=== PATIENT | male | born 1955 | race African-American/Black ===

== ENCOUNTER 2017-01-11 06:01 | Emergency (ER) | payer MEDICARE ==
[2017-01-11] MEDS ORDERED: Ketorolac Tromethamine 60 MG/2 ML VIAL ONE (06:24)
[2017-01-11] MEDS ORDERED: Colchicine 0.6 MG TAB PO SCH (06:30)
--- NOTE | 2017-01-11 07:38 | RAD ---
LEFT KNEE 4 VIEWS: Date: 01/11/17 HISTORY: 61-year-old male with left knee pain and swelling. FINDINGS: Mild degenerative changes. Increased density in the suprapatellar recess region, evidence for some gino int effusion. No acute fracture. IMPRESSION: Evidence for suprapatellar joint effusion. Mild degenerative changes without acute fracture. POS: [facility]
== END 2017-01-11 07:50 | disposition home or self-care (01) ==
LOC: ERS 06:01
DX: M10.9 Gout, unspecified (principal); I10 Essential (primary) hypertension; F31.9 Bipolar disorder, unspecified; F41.9 Anxiety disorder, unspecified; F17.210 Nicotine dependence, cigarettes, uncomplicated; Z71.6 Tobacco abuse counseling
CPT/HCPCS: 96372; 99406; J1885

== ENCOUNTER 2017-06-06 10:21 | Emergency (ER) | payer MEDICARE ==
[2017-06-06] MEDS ORDERED: Ibuprofen 800 MG TAB ONE (11:24)
== END 2017-06-06 11:26 | disposition home or self-care (01) ==
LOC: ERS 10:21
DX: M10.9 Gout, unspecified (principal); I10 Essential (primary) hypertension; F41.9 Anxiety disorder, unspecified; F31.9 Bipolar disorder, unspecified; F20.9 Schizophrenia, unspecified
CPT/HCPCS: 99283

== ENCOUNTER 2017-10-30 13:24 | Emergency (ER) | payer MEDICARE ==
[2017-10-30 13:57] LABS: #Basophils 0.1 thou/uL (0.0-0.2); #Eosinphils 0.2 thou/uL (0.0-0.7); #Lymphocytes 2.2 thou/uL (1.20-3.40); #Monocytes 0.7 thou/uL (0.11-0.59); #Neutrophils 3.3 thou/uL (1.40-6.50); %Basophils 1.2 % (0.0-1.0); %Eosinophils 2.7 % (0.0-10.0); %Lymphocytes 34.4 % (21.0-51.0); %Monocytes 10.3 % (0.0-10.0); %Neutrophils 51.4 % (42.0-75.0); Hemoglobin 14.1 g/dL (14.0-18.0); Mean Corpuscular Hemoglobin 28.9 pg (27.0-31.0); Mean Corpuscular Volume 82.6 fL (78.0-98.0); Platelet Count 319 thou/uL (130-400); RBC Distribution Width 12.6 % (11.5-14.5); Red Blood Cell (RBC) Count 4.86 mill/uL (4.70-6.10); White Blood Cell (WBC) Count 6.5 thou/uL (4.8-10.8)
[2017-10-30] MEDS ORDERED: ISOVUE-370 76%-LOCM 1 ML ONE (13:58)
--- NOTE | 2017-10-30 14:03 | RAD ---
PORTABLE CHEST ONE VIEW: Date: 10-30-17 Time: 1:28 p.m. History: Dyspnea. FINDINGS/IMPRESSION: Comparison is made with exam of 05-07-15. The heart size is borderline. The lungs are well expanded with mild pulmonary vascular congestion. No lobar consolidation, pneumothoraces, or pleural effusions are seen. POS: [facility]
[2017-10-30] MEDS ORDERED: Adacel (T-DAP) 0.5 ML VIAL ONE (14:05)
[2017-10-30 14:22] LABS: ALT (SGPT) 15 U/L (8-55); AST (SGOT) 29 U/L (5-34); Albumin 4.2 g/dL (3.4-4.8); Alkaline Phosphatase 68 U/L (40-150); Anion Gap 15 mmol/L (10-20); BUN (Urea Nitrogen) 5 mg/dL (8.4-25.7); Bilirubin, Total 0.4 mg/dL (0.2-1.2); Calc. Creatinine Clearance 0 mL/min (70-130); Calcium 9.5 mg/dL (7.8-10.44); Carbon Dioxide 22 mmol/L (23-31); Chloride 106 mmol/L (98-107); Estimated GFR-MDRD 82; Globulin 3.5 g/dL (2.4-3.5); Glucose 78 mg/dL (80-115); Lipase 9 U/L (8-78); Potassium 3.5 mmol/L (3.5-5.1); Protein, Total 7.7 g/dL (5.8-8.1); Sodium 139 mmol/L (136-145)
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
[2017-10-30] MEDS ORDERED: HYDROcodone/Acetaminophen 5/325 mg Tablet ONE (17:09)
== END 2017-10-30 17:24 | disposition home or self-care (01) ==
LOC: ERS 13:24
DX: S20.211A Contusion of right front wall of thorax, initial encounter (principal); F31.9 Bipolar disorder, unspecified; F20.9 Schizophrenia, unspecified; F41.9 Anxiety disorder, unspecified; F17.210 Nicotine dependence, cigarettes, uncomplicated; I10 Essential (primary) hypertension; M10.9 Gout, unspecified; Y04.8XXA Assault by other bodily force, initial encounter
CPT/HCPCS: 71045; 71260; 80053; 83690; 85025; 90471; 90715; 94760; 96374; G0390

== ENCOUNTER 2017-12-21 10:44 | Emergency (ER) | payer MEDICARE ==
[2017-12-21] MEDS ORDERED: Ketorolac Tromethamine 30 MG/ML VIAL ONE ×2 (11:20→11:21)
--- NOTE | 2017-12-21 11:42 | RAD ---
FOUR VIEWS RIGHT ELBOW: HISTORY: Right elbow pain. FINDINGS: AP, lateral, and both oblique views right elbow obtained. Four views right elbow demonstrate no evidence of right elbow fractures, subluxations, or bony lesion s. IMPRESSION: Normal 4 views right elbow. POS: [facility]
[2017-12-21 11:54] LABS: #Eosinphils 0.1 thou/uL (0.0-0.7); #Lymphocytes 1.9 thou/uL (1.20-3.40); #Monocytes 1.1 thou/uL (0.11-0.59); #Neutrophils 5.3 thou/uL (1.40-6.50); %Basophils 0.3 % (0.0-1.0); %Eosinophils 1.3 % (0.0-10.0); %Lymphocytes 22.1 % (21.0-51.0); %Monocytes 12.9 % (0.0-10.0); %Neutrophils 63.4 % (42.0-75.0); Hemoglobin 13.7 g/dL (14.0-18.0); Mean Corpuscular Hemoglobin 28.1 pg (27.0-31.0); Mean Corpuscular Volume 82.6 fL (78.0-98.0); Mean Platelet Volume 7.2 fL (7.4-10.4); Platelet Count 294 thou/uL (130-400); RBC Distribution Width 12.9 % (11.5-14.5); Red Blood Cell (RBC) Count 4.86 mill/uL (4.70-6.10); White Blood Cell (WBC) Count 8.4 thou/uL (4.8-10.8)
[2017-12-21 12:07] LABS: ALT (SGPT) 10 U/L (8-55); AST (SGOT) 18 U/L (5-34); Alkaline Phosphatase 73 U/L (40-150); Anion Gap 16 mmol/L (10-20); BUN (Urea Nitrogen) 13 mg/dL (8.4-25.7); Bilirubin, Total 0.8 mg/dL (0.2-1.2); Calc. Creatinine Clearance 0 mL/min (70-130); Calcium 9.5 mg/dL (7.8-10.44); Carbon Dioxide 22 mmol/L (23-31); Chloride 105 mmol/L (98-107); Estimated GFR-MDRD 79; Globulin 3.7 g/dL (2.4-3.5); Glucose 99 mg/dL (80-115); Potassium 4.1 mmol/L (3.5-5.1); Protein, Total 7.7 g/dL (5.8-8.1); Sodium 139 mmol/L (136-145)
--- NOTE | 2017-12-21 12:08 | RAD ---
FOUR VIEW LEFT KNEE SERIES: INDICATION: Left knee pain. COMPARISON: Reference is made to 01/11/2017 exam. FINDINGS: Mild residual joint capsular distention remains, decreased from prior exam. No acute fracture. Exam is otherwise similar. IMPRESSION: Improved suprapatellar joint capsular distention, when comparing to 01/11/2017, with mild residual rem aining. Correlate clinically. POS: [facility]
== END 2017-12-21 13:14 | disposition home or self-care (01) ==
LOC: ERS 10:44
DX: M10.9 Gout, unspecified (principal); I10 Essential (primary) hypertension; F41.9 Anxiety disorder, unspecified; F20.9 Schizophrenia, unspecified; F31.9 Bipolar disorder, unspecified; F17.210 Nicotine dependence, cigarettes, uncomplicated; M79.631 Pain in right forearm
CPT/HCPCS: 36415; 80053; 85025; 85652; 86140; 96374; J1885

== ENCOUNTER 2019-04-12 05:57 | Emergency (ER) | payer MEDICARE ==
[2019-04-12] MEDS ORDERED: Ketorolac Tromethamine 60 MG/2 ML VIAL ONE (06:15)
== END 2019-04-12 07:01 | disposition home or self-care (01) ==
LOC: ERS 05:57
DX: M10.9 Gout, unspecified (principal); F41.9 Anxiety disorder, unspecified; F31.9 Bipolar disorder, unspecified; F20.9 Schizophrenia, unspecified; I10 Essential (primary) hypertension; F17.210 Nicotine dependence, cigarettes, uncomplicated
CPT/HCPCS: 96372; 99283; J1885

== ENCOUNTER 2019-08-01 16:59 | Emergency (ER) | payer MEDICARE ==
--- NOTE | 2019-08-01 18:19 | RAD ---
LEFT KNEE: 08/01/19 Four views. HISTORY: Pain and swelling. COMPARISON: 12/21/17. Large amount effusion is noted in the suprapatellar region. Mild degenerative change with minimal spu rring from the tibial spines and condyles. No fracture or acute abnormality. IMPRESSION: There is lucency in the superior patella with sclerotic borders. This is a stable finding from prior exam and may represent subchondral cystic change. IMPRESSION: Mild degenerative changes as described which appear stable. Large joint effusion is noted. POS: [facility]
== END 2019-08-01 18:26 | disposition home or self-care (01) ==
LOC: ERS 16:59
DX: M10.9 Gout, unspecified (principal); I10 Essential (primary) hypertension; F41.9 Anxiety disorder, unspecified; F31.9 Bipolar disorder, unspecified; F20.9 Schizophrenia, unspecified; F17.210 Nicotine dependence, cigarettes, uncomplicated

== ENCOUNTER 2020-10-17 18:21 | Emergency (ER) | payer MEDICARE ==
[2020-10-17] MEDS ORDERED: Ketorolac Tromethamine 30 MG/ML VIAL ONE (20:16)
[2020-10-17] MEDS ORDERED: Cyclobenzaprine 10 MG TAB ONE (20:16)
== END 2020-10-17 21:26 | disposition home or self-care (01) ==
LOC: ERS 18:21
DX: M54.5 Low back pain (principal); I10 Essential (primary) hypertension; M10.9 Gout, unspecified; F17.210 Nicotine dependence, cigarettes, uncomplicated
CPT/HCPCS: 96372; 99283; J1885

== ENCOUNTER 2020-11-04 05:51 | Emergency (ER) | payer MEDICARE ==
[2020-11-04] MEDS ORDERED: Morphine 4 MG/ML VIAL ONE (07:18)
== END 2020-11-04 08:00 | disposition home or self-care (01) ==
LOC: ERS 05:51
DX: S82.842A Displaced bimalleolar fracture of left lower leg, initial encounter for closed fracture (principal); I10 Essential (primary) hypertension; M10.9 Gout, unspecified; F17.210 Nicotine dependence, cigarettes, uncomplicated; X50.1XXA Overexertion from prolonged static or awkward postures, initial encounter
CPT/HCPCS: 29515; 96372; J2270

== ENCOUNTER 2020-11-09 11:53 | Outpatient (CLI) | payer MEDICARE ==
[2020-11-09 23:48] LABS: SARS-CoV-2 PCR by NAA Not Detected (NotDetected)
== END 2020-11-09 11:54 | disposition home or self-care (01) ==
LOC: LABBT 11:53
PROVIDERS: ATTEND Orthopaedic Surgery
DX: Z01.812 Encounter for preprocedural laboratory examination (principal); S82.842A Displaced bimalleolar fracture of left lower leg, initial encounter for closed fracture; Z20.822 Contact with and (suspected) exposure to COVID-19
CPT/HCPCS: U0003; U0005

== ENCOUNTER 2020-11-12 05:59 | Day surgery (SDC) | payer MEDICARE ==
[2020-11-10 15:20] VITALS: BMI 23.3
[2020-11-12] MEDS ORDERED: Fentanyl 100 MCG/2 ML VIAL ONE ×3 (06:36→09:19)
[2020-11-12] MEDS ORDERED: Neomycin-Polymyxin 1 ML AMP ONE (06:38)
[2020-11-12] MEDS ORDERED: Bupivacaine PF 0.5% 30 ML VIAL ONE (06:38)
[2020-11-12] MEDS ORDERED: ceFAZolin 2 GM/DEX 5% 100 ML BAG ONE (06:42)
[2020-11-12] MEDS ORDERED: Midazolam HCl 2 mg/2 ml Vial ONE (07:01)
[2020-11-12] MEDS ORDERED: Morphine 4 MG/ML VIAL ONE ×2 (09:54→10:51)
[2020-11-12] MEDS ORDERED: HYDROcodone/Acetaminophen 5/325 mg Tablet ONE (10:30)
== END 2020-11-12 14:35 | disposition home or self-care (01) ==
LOC: SDC 05:59
PROVIDERS: ATTEND Orthopaedic Surgery
PROC: 0QSK04Z Reposition Left Fibula with Internal Fixation Device, Open Approach (ICD-10-PCS; principal; 2020-11-12)
PROC: 0QSH04Z Reposition Left Tibia with Internal Fixation Device, Open Approach (ICD-10-PCS; 2020-11-12)
PROC: 3E0T3BZ Introduction of Anesthetic Agent into Peripheral Nerves and Plexi, Percutaneous Approach (ICD-10-PCS; 2020-11-12)
DX: S82.842A Displaced bimalleolar fracture of left lower leg, initial encounter for closed fracture (principal); F17.200 Nicotine dependence, unspecified, uncomplicated; X50.1XXA Overexertion from prolonged static or awkward postures, initial encounter
CPT/HCPCS: 27814; 64445; 73610; 76000; C1713 ×5; J2250; J2270; J3010; S0020

== ENCOUNTER 2020-11-14 13:22 | Emergency (ER) | payer MEDICARE ==
[2020-11-14 13:45] LABS: #Basophils 0.1 thou/uL (0.0-0.2); #Eosinphils 0.1 thou/uL (0.0-0.7); #Lymphocytes 2.9 thou/uL (1.20-3.40); #Monocytes 1.5 thou/uL (0.11-0.59); %Basophils 0.7 % (0.0-1.0); %Eosinophils 0.6 % (0.0-10.0); %Monocytes 13.3 % (0.0-10.0); %Neutrophils 60.5 % (42.0-75.0); Hemoglobin 12.5 g/dL (14.0-18.0); Mean Corpuscular HGB CONC 33.8 g/dL (32.0-36.0); Mean Corpuscular Hemoglobin 27.3 pg (27.0-31.0); Mean Corpuscular Volume 80.9 fL (78.0-98.0); Mean Platelet Volume 6.6 fL (7.4-10.4); Platelet Count 505 thou/uL (130-400); RBC Distribution Width 13.2 % (11.5-14.5); Red Blood Cell (RBC) Count 4.57 mill/uL (4.70-6.10); White Blood Cell (WBC) Count 11.6 thou/uL (4.8-10.8)
[2020-11-14] MEDS ORDERED: Ketorolac Tromethamine 30 MG/ML VIAL ONE (14:06)
[2020-11-14] MEDS ORDERED: Morphine 4 MG/ML VIAL ONE (14:06)
[2020-11-14 14:07] LABS: ALT (SGPT) 15 U/L (8-55); AST (SGOT) 53 U/L (5-34); Albumin 3.7 g/dL (3.4-4.8); Alkaline Phosphatase 82 U/L (40-110); Anion Gap 15 mmol/L (10-20); BUN (Urea Nitrogen) 12 mg/dL (8.4-25.7); Bilirubin, Total 0.5 mg/dL (0.2-1.2); Calc. Creatinine Clearance 0 mL/min (70-130); Calcium 9.6 mg/dL (7.8-10.44); Carbon Dioxide 24 mmol/L (23-31); Chloride 107 mmol/L (98-107); Globulin 4.2 g/dL (2.4-3.5); Glucose 84 mg/dL (80-115); Potassium 6.1 mmol/L (3.5-5.1); Protein, Total 7.9 g/dL (5.8-8.1); Sodium 140 mmol/L (136-145)
== END 2020-11-14 16:45 | disposition home or self-care (01) ==
LOC: ERS 13:22
DX: G89.18 Other acute postprocedural pain (principal); S82.842D Displaced bimalleolar fracture of left lower leg, subsequent encounter for closed fracture with routine healing; I10 Essential (primary) hypertension; M10.9 Gout, unspecified; F17.210 Nicotine dependence, cigarettes, uncomplicated
CPT/HCPCS: 27808; 80053; 85025; 96374; 96375; J1885; J2270

== ENCOUNTER 2020-12-03 08:01 | Emergency (ER) | payer MEDICARE ==
[2020-12-03] MEDS ORDERED: Ketorolac Tromethamine 30 MG/ML VIAL ONE (08:23)
[2020-12-03 08:48] LABS: Bilirubin Negative (Negative); Blood, Urine Negative (Negative); Clarity Clear (Clear); Glucose, Urine (Dipstick) Normal (Negative); Ketone, Urine Negative (Negative); Leukocyte Negative Leu/uL (Negative); Nitrite Negative (Negative); Protein, Urine (Dipstick) Negative (Neg-Trace); Specific Gravity, Urine 1.005 (1.002-1.036); Urobilinogen Normal mg/dL (Less than 2)
== END 2020-12-03 10:55 | disposition home or self-care (01) ==
LOC: ERS 08:01
DX: M54.50 Low back pain, unspecified (principal); I10 Essential (primary) hypertension; M10.9 Gout, unspecified; F17.210 Nicotine dependence, cigarettes, uncomplicated
CPT/HCPCS: 81003; 96372; 99283; J1885

== ENCOUNTER 2021-03-06 22:45 | Emergency (ER) | payer MEDICARE ==
[2021-03-06] MEDS ORDERED: Acetaminophen 500 MG TAB ONE (22:55)
[2021-03-07 15:35] LABS: SARS-CoV-2 PCR by NAA Not Detected (NotDetected)
== END 2021-03-07 01:05 | disposition home or self-care (01) ==
LOC: ERS 22:45
DX: B34.9 Viral infection, unspecified (principal); M25.572 Pain in left ankle and joints of left foot; Z20.822 Contact with and (suspected) exposure to COVID-19; I10 Essential (primary) hypertension; M10.9 Gout, unspecified; F17.210 Nicotine dependence, cigarettes, uncomplicated
CPT/HCPCS: 73610; 87804 ×2; 99284; U0003; U0005

== ENCOUNTER 2021-04-06 13:57 | Emergency (ER) | payer MEDICARE ==
[2021-04-06] MEDS ORDERED: Rocuronium Bromide 10 MG/ML (10ML VIAL) ONE ×2 (14:38→14:45)
[2021-04-06] MEDS ORDERED: Ketamine 50 MG/ML (10ML VIAL) ONE (14:38)
[2021-04-06] MEDS ORDERED: Midazolam HCl 2 mg/2 ml Vial ONE ×3 (14:49→14:54)
[2021-04-06] MEDS ORDERED: Propofol 1,000 MG/100 ML VIAL IV ONE (14:53)
[2021-04-06 15:18] LABS: #Basophils 0.1 thou/uL (0.0-0.2); #Eosinphils 0.1 thou/uL (0.0-0.7); #Lymphocytes 1.3 thou/uL (1.20-3.40); #Monocytes 0.7 thou/uL (0.11-0.59); #Neutrophils 6.6 thou/uL (1.40-6.50); %Basophils 0.7 % (0.0-1.0); %Eosinophils 0.9 % (0.0-10.0); %Lymphocytes 14.9 % (21.0-51.0); %Monocytes 7.5 % (0.0-10.0); %Neutrophils 76.1 % (42.0-75.0); Hemoglobin 13.7 g/dL (14.0-18.0); Mean Corpuscular HGB CONC 33.5 g/dL (32.0-36.0); Mean Corpuscular Hemoglobin 27.2 pg (27.0-31.0); Mean Corpuscular Volume 81.4 fL (78.0-98.0); Mean Platelet Volume 6.3 fL (7.4-10.4); Platelet Count 478 thou/uL (130-400); RBC Distribution Width 13.9 % (11.5-14.5); Red Blood Cell (RBC) Count 5.02 mill/uL (4.70-6.10); White Blood Cell (WBC) Count 8.7 thou/uL (4.8-10.8)
[2021-04-06 15:36] LABS: Acetaminophen Less than 6.0 mcg/mL (10.0-30.0); Alcohol 54 mg/dL (Less than 10); Salicylate Less than 8.0 mg/dL (15.0-30.0)
[2021-04-06 15:37] LABS: ALT (SGPT) 11 U/L (8-55); AST (SGOT) 15 U/L (5-34); Alkaline Phosphatase 76 U/L (40-110); Anion Gap 15 mmol/L (10-20); BUN (Urea Nitrogen) 8 mg/dL (8.4-25.7); Bilirubin, Total 0.3 mg/dL (0.2-1.2); CK (CPK) 114 U/L (30-200); Calc. Creatinine Clearance 0 mL/min (70-130); Calcium 9.4 mg/dL (7.8-10.44); Carbon Dioxide 23 mmol/L (23-31); Chloride 106 mmol/L (98-107); Globulin 3.5 g/dL (2.4-3.5); Glucose 68 mg/dL (80-115); Potassium 3.9 mmol/L (3.5-5.1); Protein, Total 7.5 g/dL (5.8-8.1); Sodium 140 mmol/L (136-145)
[2021-04-06] MEDS ORDERED: Aspirin Chewable 81 MG TAB ONE (16:13)
[2021-04-06 18:34] LABS: Amphetamine Not Detected (NotDetected); Barbiturates Screen Not Detected (NotDetected); Benzodiazepine Screen Detected (NotDetected); Cocaine Metabolite Screen Detected (NotDetected); Methadone Not Detected (NotDetected); Methamphetamine Not Detected (NotDetected); Opiate Screen Not Detected (NotDetected); Oxycodone Screen Not Detected (NotDetected); Phencyclidine (PCP) Not Detected (NotDetected); THC/Cannabinoid Screen Detected (NotDetected); Tricyclic Screen Not Detected (NotDetected)
== END 2021-04-06 21:09 | disposition home or self-care (01) ==
LOC: ERS 13:57
DX: R07.2 Precordial pain (principal); F14.10 Cocaine abuse, uncomplicated; I10 Essential (primary) hypertension; M10.9 Gout, unspecified; F17.210 Nicotine dependence, cigarettes, uncomplicated
CPT/HCPCS: 36415; 71045; 80053; 80306; 80307; 82550; 83880; 84484; 85025; 93005; J2250; J2704

== ENCOUNTER 2021-07-02 12:01 | Emergency (ER) | payer MEDICARE ==
[2021-07-02] MEDS ORDERED: Ketorolac Tromethamine 30 MG/ML VIAL ONE (12:46)
[2021-07-02 12:59] LABS: #Eosinphils 0.1 thou/uL (0.0-0.7); #Lymphocytes 1.9 thou/uL (1.20-3.40); #Monocytes 1.3 thou/uL (0.11-0.59); #Neutrophils 6.7 thou/uL (1.40-6.50); %Basophils 0.4 % (0.0-1.0); %Lymphocytes 18.5 % (21.0-51.0); %Monocytes 13.1 % (0.0-10.0); Hemoglobin 14.4 g/dL (14.0-18.0); Mean Corpuscular HGB CONC 34.1 g/dL (32.0-36.0); Mean Corpuscular Hemoglobin 27.5 pg (27.0-31.0); Mean Corpuscular Volume 80.8 fL (78.0-98.0); Platelet Count 316 thou/uL (130-400); RBC Distribution Width 13.8 % (11.5-14.5); Red Blood Cell (RBC) Count 5.23 mill/uL (4.70-6.10)
[2021-07-02 13:19] LABS: ALT (SGPT) 7 U/L (8-55); AST (SGOT) 13 U/L (5-34); Alkaline Phosphatase 81 U/L (40-110); Anion Gap 14 mmol/L (10-20); BUN (Urea Nitrogen) 13 mg/dL (8.4-25.7); Bilirubin, Total 0.9 mg/dL (0.2-1.2); Calc. Creatinine Clearance 0 mL/min (70-130); Calcium 9.4 mg/dL (7.8-10.44); Carbon Dioxide 24 mmol/L (23-31); Chloride 103 mmol/L (98-107); Glucose 86 mg/dL (80-115); Potassium 3.9 mmol/L (3.5-5.1); Sodium 137 mmol/L (136-145)
== END 2021-07-02 13:32 | disposition home or self-care (01) ==
LOC: ERS 12:01
DX: M10.9 Gout, unspecified (principal); I10 Essential (primary) hypertension; F17.210 Nicotine dependence, cigarettes, uncomplicated
CPT/HCPCS: 36415; 80053; 85025; 85652; 86140; 87040; 96374; J1885

== ENCOUNTER 2022-01-10 13:43 | Emergency (ER) | payer MEDICARE ==
[2022-01-10] MEDS ORDERED: Ketorolac Tromethamine 30 MG/ML VIAL ONE (15:22)
== END 2022-01-10 16:29 | disposition home or self-care (01) ==
LOC: ERS 13:43
DX: M10.9 Gout, unspecified (principal); I10 Essential (primary) hypertension; F17.210 Nicotine dependence, cigarettes, uncomplicated; Z79.899 Other long term (current) drug therapy
CPT/HCPCS: 96372; J1885

== ENCOUNTER 2022-01-11 14:53 | Emergency (ER) | payer MEDICARE ==
[2022-01-11] MEDS ORDERED: Ketorolac Tromethamine 30 MG/ML VIAL ONE (15:51)
== END 2022-01-11 16:47 | disposition home or self-care (01) ==
LOC: ERS 14:53
DX: M10.9 Gout, unspecified (principal); I10 Essential (primary) hypertension; F17.210 Nicotine dependence, cigarettes, uncomplicated
CPT/HCPCS: 96374; J1885

== ENCOUNTER 2022-11-10 19:52 | Emergency (ER) | payer MEDICARE | END 2022-11-10 20:52 | disposition home or self-care (01) | LOC: ERS 19:52 | DX: S00.83XA Contusion of other part of head, initial encounter (principal); I10 Essential (primary) hypertension; F17.210 Nicotine dependence, cigarettes, uncomplicated; W19.XXXA Unspecified fall, initial encounter | CPT/HCPCS: 70450; 70486 ==

== ENCOUNTER 2022-11-14 10:13 | Emergency (ER) | payer MEDICARE ==
[2022-11-14 11:14] LABS: #Monocytes 1.1 thou/uL (0.11-0.59); #Neutrophils 7.8 thou/uL (1.40-6.50); %Basophils 0.4 % (0.0-1.0); %Eosinophils 0.4 % (0.0-10.0); %Lymphocytes 12.5 % (21.0-51.0); %Monocytes 10.3 % (0.0-10.0); %Neutrophils 75.9 % (42.0-75.0); Hematocrit 39.3 % (42.0-52.0); Mean Corpuscular HGB CONC 35.6 g/dL (32.0-36.0); Mean Corpuscular Hemoglobin 27.6 pg (27.0-31.0); Mean Corpuscular Volume 77.5 fl (78.0-98.0); Platelet Count 334 10x3/uL (130-400); RBC Distribution Width 13.9 % (11.5-14.5); Red Blood Cell (RBC) Count 5.07 mill/uL (4.70-6.10); White Blood Cell (WBC) Count 10.3 10x3/uL (4.8-10.8)
[2022-11-14 11:34] LABS: ALT (SGPT) 9 U/L (8-55); AST (SGOT) 13 U/L (5-34); Albumin 4.2 g/dL (3.4-4.8); Alkaline Phosphatase 83 U/L (40-110); Anion Gap 16 mmol/L (10-20); BUN (Urea Nitrogen) 4 mg/dL (8.4-25.7); Bilirubin, Total 0.3 mg/dL (0.2-1.2); Calc. Creatinine Clearance 0 mL/min (70-130); Calcium 9.2 mg/dL (7.8-10.44); Carbon Dioxide 20 mmol/L (23-31); Chloride 106 mmol/L (98-107); Estimated GFR 95; Glucose 122 mg/dL (80-115); Lipase 25 U/L (8-78); Magnesium 2.2 mg/dL (1.6-2.6); Potassium 3.7 mmol/L (3.5-5.1); Protein, Total 7.2 g/dL (5.8-8.1); Sodium 138 mmol/L (136-145)
[2022-11-14 11:37] LABS: Troponin I Less than 0.010 ng/mL (< 0.028)
[2022-11-14] MEDS ORDERED: Iopamidol-370 76% 500 ML MDV (1 ML CHARGE) ONE (12:15)
[2022-11-14] MEDS ORDERED: Aspirin Chewable 81 MG TAB ONE (12:24)
[2022-11-14] MEDS ORDERED: Dicyclomine 20 MG TAB ONE (12:57)
[2022-11-14] MEDS ORDERED: Ketorolac Tromethamine 30 MG/ML VIAL ONE (12:57)
[2022-11-14 13:21] LABS: Bacteria/HPF None Seen HPF (None Seen); Bilirubin Negative (Negative); Blood, Urine Negative (Negative); CAUTI Indications for Culture Alt mental st,lethar; Clarity Clear (Clear); Glucose, Urine (Dipstick) Normal (Negative); Ketone, Urine Negative (Negative); Leukocyte Negative Leu/uL (Negative); Nitrite Negative (Negative); Protein, Urine (Dipstick) Negative (Neg-Trace); RBC/HPF 0-3 HPF (0-3); Specific Gravity, Urine 1.011 (1.002-1.036); Squamous Epithelial None Seen HPF (0-3); Urobilinogen Normal mg/dL (Less than 2); WBC/HPF 0-3 HPF (0-3); pH, Urine 7.5 (5.0-9.0)
[2022-11-14 13:24] LABS: Urine Culture Reflex No No
== END 2022-11-14 13:52 | disposition home or self-care (01) ==
LOC: ERS 10:13
DX: R10.32 Left lower quadrant pain (principal); I10 Essential (primary) hypertension; M10.9 Gout, unspecified; F17.210 Nicotine dependence, cigarettes, uncomplicated
CPT/HCPCS: 36415; 70480; 71045; 74177; 80053; 81001; 83605; 83690; 83735; 83880; 84484; 85025; 87040; 93005; 96374; J1885; Q9967

== ENCOUNTER 2023-02-21 04:05 | Emergency (ER) | payer MEDICARE ==
[2023-02-21 04:48] LABS: #Monocytes 0.5 thou/uL (0.11-0.59); #Neutrophils 5.5 thou/uL (1.40-6.50); %Basophils 0.3 % (0.0-1.0); %Eosinophils 0.3 % (0.0-10.0); %Lymphocytes 16.6 % (21.0-51.0); %Monocytes 7.2 % (0.0-10.0); %Neutrophils 75.3 % (42.0-75.0); Hematocrit 41.5 % (42.0-52.0); Hemoglobin 14.5 g/dL (14.0-18.0); Mean Corpuscular HGB CONC 34.9 g/dL (32.0-36.0); Mean Corpuscular Hemoglobin 27.3 pg (27.0-31.0); Mean Platelet Volume 8.7 fL (7.4-10.4); Platelet Count 368 10x3/uL (130-400); RBC Distribution Width 14.3 % (11.5-14.5); Red Blood Cell (RBC) Count 5.32 mill/uL (4.70-6.10); White Blood Cell (WBC) Count 7.3 10x3/uL (4.8-10.8)
[2023-02-21] MEDS ORDERED: Famotidine/PF 20 mg/2ml Vial ONE (05:00)
[2023-02-21 05:15] LABS: ALT (SGPT) 17 U/L (8-55); AST (SGOT) 23 U/L (5-34); Albumin 4.2 g/dL (3.4-4.8); Alkaline Phosphatase 70 U/L (40-110); Anion Gap 12 mmol/L (10-20); BUN (Urea Nitrogen) 8 mg/dL (8.4-25.7); Bilirubin, Total 0.4 mg/dL (0.2-1.2); Calc. Creatinine Clearance 0 mL/min (70-130); Calcium 9.7 mg/dL (7.8-10.44); Carbon Dioxide 25 mmol/L (23-31); Chloride 105 mmol/L (98-107); Estimated GFR 94; Globulin 3.6 g/dL (2.4-3.5); Glucose 118 mg/dL (80-115); Lipase 7 U/L (8-78); Protein, Total 7.8 g/dL (5.8-8.1); Sodium 138 mmol/L (136-145)
[2023-02-21] MEDS ORDERED: Lidocaine 2% Viscous Solution 10 ML, Aluminum & Magnesium Hydroxide 30 ML SSW SCH (05:15)
[2023-02-21 05:18] LABS: Troponin I Less than 0.010 ng/mL (< 0.028)
== END 2023-02-21 07:19 | disposition home or self-care (01) ==
LOC: ERS 04:05
DX: K27.9 Peptic ulcer, site unspecified, unspecified as acute or chronic, without hemorrhage or perforation (principal); I10 Essential (primary) hypertension; F17.210 Nicotine dependence, cigarettes, uncomplicated; R11.10 Vomiting, unspecified
CPT/HCPCS: 36415; 71045; 80053; 83690; 84484; 85025; 93005; 96361; 96374; S0028

== ENCOUNTER 2024-02-05 07:48 | Emergency (ER) | payer MEDICARE ==
[2024-02-05] MEDS ORDERED: Ketorolac Tromethamine 30 MG (1 mL) VIAL ONE (08:39)
[2024-02-05] MEDS ORDERED: Colchicine 0.6 MG TAB PO SCH (10:00)
== END 2024-02-05 10:26 | disposition home or self-care (01) ==
LOC: ERS 07:48
DX: L03.115 Cellulitis of right lower limb (principal); M10.9 Gout, unspecified; I10 Essential (primary) hypertension; F17.210 Nicotine dependence, cigarettes, uncomplicated
CPT/HCPCS: 73564; 93971; J1885; 96374

== ENCOUNTER 2024-09-07 04:19 | Emergency (ER) | payer MEDICARE, OTHER ==
[2024-09-07] MEDS ORDERED: Mag-Al 1200 mg/1200 mg/30 ML UDCUP ONE (04:54)
[2024-09-07] MEDS ORDERED: Lidocaine Viscous Sol 2% 15 ml UD Cup ONE (04:54)
[2024-09-07 04:58] LABS: #Basophils 0.05 10x3/uL (0.0-0.2); #Eosinophils 0.27 10x3/uL (0.0-0.7); #Monocytes 0.47 10x3/uL (0.11-0.59); #Neutrophils 1.99 10x3/uL (1.40-6.50); %Basophils 1.1 % (0.0-1.0); %Eosinophils 5.7 % (0.0-10.0); %Lymphocytes 41.0 % (21.0-51.0); %Monocytes 9.9 % (0.0-10.0); %Neutrophils 42.1 % (42.0-75.0); Hematocrit 40.3 % (42.0-52.0); Hemoglobin 14.2 g/dL (14.0-18.0); Mean Corpuscular Hemoglobin 27.0 pg (27.0-31.0); Mean Corpuscular Volume 76.8 fL (78.0-98.0); Platelet Count 316 10x3/uL (130-400); Red Blood Cell (RBC) Count 5.25 mill/uL (4.70-6.10); White Blood Cell (WBC) Count 4.73 10x3/uL (4.8-10.8)
[2024-09-07 05:15] LABS: ALT (SGPT) 22 U/L (Less than 45); AST (SGOT) 42 U/L (11-34); Albumin 3.7 g/dL (3.1-4.5); Alkaline Phosphatase 78 U/L (40-110); Anion Gap 15 mmol/L (10-20); BUN (Urea Nitrogen) 9 mg/dL (8.4-25.7); Bilirubin, Total 0.2 mg/dL (0.3-1.2); Calc. Creatinine Clearance 0 mL/min (70-130); Calcium 8.6 mg/dL (7.8-10.44); Carbon Dioxide 27 mmol/L (23-31); Chloride 104 mmol/L (98-107); Globulin 3.3 g/dL (2.4-3.5); Glucose 82 mg/dL (80-115); Potassium 3.9 mmol/L (3.5-5.1); Sodium 142 mmol/L (136-145)
[2024-09-07 05:24] LABS: Troponin I Less than 0.010 ng/mL (< 0.028)
== END 2024-09-07 05:45 | disposition home or self-care (01) ==
LOC: ERS 04:19
DX: R07.89 Other chest pain (principal); I10 Essential (primary) hypertension; F17.210 Nicotine dependence, cigarettes, uncomplicated
CPT/HCPCS: 80053; 84484; 85025; 93005; 99285

== ENCOUNTER 2024-12-22 18:03 | Inpatient (IN) | payer OTHER ==
[~2024-12-22 18:03] MED LIST: Iopamidol-370 76% 500 ML MDV (1 ML CHARGE) ONE
[2024-12-22] MEDS ORDERED: Ondansetron PF 4 MG/2 ML Vial ONE (19:38)
[2024-12-22 19:57] LABS: #Basophils 0.03 10x3/uL (0.0-0.2); #Eosinophils 0.09 10x3/uL (0.0-0.7); #Monocytes 1.14 10x3/uL (0.11-0.59); #Neutrophils 13.91 10x3/uL (1.40-6.50); %Basophils 0.2 % (0.0-1.0); %Eosinophils 0.6 % (0.0-10.0); %Lymphocytes 5.2 % (21.0-51.0); %Monocytes 7.1 % (0.0-10.0); %Neutrophils 86.3 % (42.0-75.0); Hematocrit 37.5 % (42.0-52.0); Hemoglobin 13.3 g/dL (14.0-18.0); Mean Corpuscular Hemoglobin 27.3 pg (27.0-31.0); Mean Corpuscular Volume 77.0 fL (78.0-98.0); Platelet Count 274 10x3/uL (130-400); Red Blood Cell (RBC) Count 4.87 mill/uL (4.70-6.10); White Blood Cell (WBC) Count 16.10 10x3/uL (4.8-10.8)
[2024-12-22 20:11] LABS: INR-International Normal Ratio 1.0; Prothrombin Time 13.2 sec (12.0-14.7)
[2024-12-22 20:12] LABS: PTT 30.8 sec (22.9-36.1)
[2024-12-22 20:21] LABS: ALT (SGPT) 14 U/L (Less than 45); AST (SGOT) 26 U/L (11-34); Albumin 3.6 g/dL (3.1-4.5); Alkaline Phosphatase 72 U/L (40-110); Anion Gap 18 mmol/L (10-20); BUN (Urea Nitrogen) 10 mg/dL (8.4-25.7); Bilirubin, Total 0.4 mg/dL (0.3-1.2); Calc. Creatinine Clearance 0 mL/min (70-130); Calcium 9.3 mg/dL (7.8-10.44); Carbon Dioxide 20 mmol/L (23-31); Chloride 110 mmol/L (98-107); Globulin 3.2 g/dL (2.4-3.5); Glucose 82 mg/dL (80-115); Lipase 14 U/L (8-78); Magnesium 1.7 mg/dL (1.6-2.6); Potassium 4.3 mmol/L (3.5-5.1); Sodium 144 mmol/L (136-145)
[2024-12-22] MEDS ORDERED: Calcium Carbonate 500 MG ChewTAB PO PRN (22:08)
[2024-12-22] MEDS ORDERED: Senokot S 8.6-50 MG TAB PO PRN (22:08)
[2024-12-22] MEDS ORDERED: Electrolyte Replacement Protocol 1 EACH FS SCH (22:15)
[2024-12-22] MEDS ORDERED: Potassium Chloride 20 MEQ in Premix 1 BAG IVPB PRN (22:30)
[2024-12-22] MEDS ORDERED: Albuterol 2.5 MG (3 mL) NEB NEB PRN (22:30)
[2024-12-22] MEDS ORDERED: PHOS-NAK 1 PKT PACK PO PRN (22:30)
[2024-12-22] MEDS: Pantoprazole 40 MG VIAL IVP SCH (23:43)
[2024-12-22] MEDS: Metoclopramide HCl 10 MG (2 mL) VIAL IVP SCH (23:43)
[2024-12-22] MEDS: Azithromycin 500 MG in Sodium Chloride 0.9% 250 ML 250 ML IVPB SCH (23:48)
[2024-12-23 05:09] LABS: Cocaine Metabolite Screen PRELIM POSITIVE (Negative); THC/Cannabinoid Screen PRELIM POSITIVE (Negative); Tricyclic Screen Negative (Negative)
[2024-12-23 05:32] LABS: ALT (SGPT) 11 U/L (Less than 45); AST (SGOT) 18 U/L (11-34); Albumin 3.0 g/dL (3.1-4.5); Alkaline Phosphatase 62 U/L (40-110); Anion Gap 12 mmol/L (10-20); BUN (Urea Nitrogen) 11 mg/dL (8.4-25.7); Bilirubin, Total 0.6 mg/dL (0.3-1.2); Calc. Creatinine Clearance 52 mL/min (70-130); Calcium 8.5 mg/dL (7.8-10.44); Carbon Dioxide 27 mmol/L (23-31); Chloride 108 mmol/L (98-107); Globulin 2.3 g/dL (2.4-3.5); Glucose 95 mg/dL (80-115); Magnesium 1.6 mg/dL (1.6-2.6); Potassium 4.3 mmol/L (3.5-5.1); Sodium 143 mmol/L (136-145)
[2024-12-23 05:45] LABS: #Basophils 0.06 10x3/uL (0.0-0.2); #Eosinophils 0.10 10x3/uL (0.0-0.7); #Monocytes 1.25 10x3/uL (0.11-0.59); #Neutrophils 14.57 10x3/uL (1.40-6.50); %Basophils 0.3 % (0.0-1.0); %Eosinophils 0.6 % (0.0-10.0); %Lymphocytes 10.1 % (21.0-51.0); %Monocytes 7.0 % (0.0-10.0); %Neutrophils 81.6 % (42.0-75.0); Hematocrit 32.8 % (42.0-52.0); Hemoglobin 11.3 g/dL (14.0-18.0); Mean Corpuscular Hemoglobin 27.6 pg (27.0-31.0); Mean Corpuscular Volume 80.2 fL (78.0-98.0); Platelet Count 242 10x3/uL (130-400); Red Blood Cell (RBC) Count 4.09 mill/uL (4.70-6.10); White Blood Cell (WBC) Count 17.86 10x3/uL (4.8-10.8)
[2024-12-23] MEDS: Magnesium 2 GM/50 ML(in water) 2 GM in Premix 1 BAG IVPB PRN (05:48)
[2024-12-23] MEDS: Multivit, Therapeutic 1 TAB PO SCH (09:03)
[2024-12-23] MEDS: Enoxaparin 40 MG (0.4 mL) SYRINGE SC SCH (09:03)
[2024-12-23] MEDS: Folic Acid 1 MG TAB PO SCH (09:03)
[2024-12-23] MEDS: Pantoprazole 40 MG VIAL IVP SCH (09:03)
[2024-12-23] MEDS: Azithromycin 500 MG in Sodium Chloride 0.9% 250 ML 250 ML IVPB SCH (17:11)
[2024-12-23] MEDS: Melatonin 3 MG TAB PO PRN (23:13)
[2024-12-24] MEDS: Acetaminophen 325 MG TAB PO PRN (04:26)
[2024-12-24 04:50] LABS: #Basophils 0.03 10x3/uL (0.0-0.2); #Eosinophils 0.18 10x3/uL (0.0-0.7); #Monocytes 0.94 10x3/uL (0.11-0.59); #Neutrophils 9.75 10x3/uL (1.40-6.50); %Basophils 0.2 % (0.0-1.0); %Eosinophils 1.4 % (0.0-10.0); %Lymphocytes 13.0 % (21.0-51.0); %Monocytes 7.5 % (0.0-10.0); %Neutrophils 77.3 % (42.0-75.0); Hematocrit 32.6 % (42.0-52.0); Hemoglobin 11.2 g/dL (14.0-18.0); Mean Corpuscular Hemoglobin 27.5 pg (27.0-31.0); Mean Corpuscular Volume 79.9 fL (78.0-98.0); Platelet Count 246 10x3/uL (130-400); Red Blood Cell (RBC) Count 4.08 mill/uL (4.70-6.10); White Blood Cell (WBC) Count 12.61 10x3/uL (4.8-10.8)
[2024-12-24 05:04] LABS: ALT (SGPT) 9 U/L (Less than 45); AST (SGOT) 21 U/L (11-34); Albumin 2.9 g/dL (3.1-4.5); Alkaline Phosphatase 59 U/L (40-110); Anion Gap 11 mmol/L (10-20); BUN (Urea Nitrogen) 8 mg/dL (8.4-25.7); Bilirubin, Total 0.5 mg/dL (0.3-1.2); Calc. Creatinine Clearance 59 mL/min (70-130); Calcium 8.7 mg/dL (7.8-10.44); Carbon Dioxide 24 mmol/L (23-31); Chloride 109 mmol/L (98-107); Globulin 2.9 g/dL (2.4-3.5); Glucose 127 mg/dL (80-115); Potassium 3.6 mmol/L (3.5-5.1); Sodium 140 mmol/L (136-145)
[2024-12-24 05:30] VITALS: TEMP 98.9
[2024-12-24 08:44] VITALS: BP 141/90
[2024-12-24] MEDS: Allopurinol 100 MG TAB PO SCH (09:47)
[2024-12-25] MEDS ORDERED: Pantoprazole 40 MG DR.TAB PO SCH (09:00)
[2024-12-25] MEDS ORDERED: Thiamine 100 MG TAB PO SCH (21:00)
== END 2024-12-24 15:54 | disposition home or self-care (01) | DRG 193 ==
LOC: ERS 18:03 → SUATTDRO 18:03 → MSONC 22:05
PROVIDERS: ADMIT Internal Medicine; ATTEND Internal Medicine
DX: J18.9 Pneumonia, unspecified organism (principal); J96.01 Acute respiratory failure with hypoxia; I10 Essential (primary) hypertension; K21.9 Gastro-esophageal reflux disease without esophagitis; M10.9 Gout, unspecified; Z91.048 Other nonmedicinal substance allergy status; F19.10 Other psychoactive substance abuse, uncomplicated; Z98.890 Other specified postprocedural states; Z88.8 Allergy status to other drugs, medicaments and biological substances; Z79.899 Other long term (current) drug therapy
CPT/HCPCS: 36415; 71045; 71260; 74177; 80053; 80306; 83605; 83690; 83735; 83880; 84100; 84145; 84484; 85025; 85610; 85730; 87040; 93005; 96361; 96365; 96375; J0456; J0692; J1650; J2272; J2405; J2470; J2543; J2765; J3411; J3475; J7050; J7120; Q9967